=== PATIENT | male | born 2005 | race African-American/Black ===

== ENCOUNTER → 2023-09-04 | Outpatient (CLI) | payer OTHER | LOC: COL.RAD 08:20 | DX: M25.311 Other instability, right shoulder (principal); S43.491A Other sprain of right shoulder joint, initial encounter; X58.XXXA Exposure to other specified factors, initial encounter | CPT/HCPCS: A9575; Q9967 ==

== ENCOUNTER 2024-05-27 14:32 | Observation (INO) | payer OTHER ==
[~2024-05-27] VITALS: Ht 188 cm; Wt 88.5 kg
[2024-05-27] MEDS ORDERED: Iohexol 300 - 100 ML VIAL IV ONE (15:15)
[2024-05-27] MEDS ORDERED: NS 100 ML IV SCH (15:18)
[2024-05-27 16:45] VITALS: BP 156/73; PULSE 80; TEMP 98.9
[2024-05-27 17:00] VITALS: BP_SYST 156
[2024-05-27] MEDS ORDERED: Acetaminophen 325 MG TAB PO PRN (17:15)
[2024-05-27] MEDS ORDERED: LR 1,000 ML IV SCH (17:15)
[2024-05-27] MEDS ORDERED: Ondansetron 4 MG/2 ML VIAL IV PRN (17:15)
--- NOTE | 2024-05-27 17:45 | NUR ---
SHIFT ASSESSMENT COMPLETED AT THIS TIME. PT A&OX4. PT REPORTS 3/10 PAIN LOCATED IN THE ABDOMEN CRAMPS BUT DENIES PAIN MEDICAION AT THIS TIME. PT DENIES NAUSEA AND SOB AT THIS TIME. PT REPORTS 2 EPISODES OF VOMITING EARLIER THIS MORNING. CALL LIGHT WITHIN REACH. NO FURTHER NEEDS AT THIS TIME.
[2024-05-27 21:04] VITALS: BP 133/79; PULSE 68; TEMP 98.1
[2024-05-27 21:09] VITALS: BP_SYST 133
--- NOTE | 2024-05-27 21:30 | NUR ---
PT RESTING IN BED, ALERT AND ORIENTEDX4. ASSESSED PT. TOLERATED FULL LIQUID DIET. NO ABDOMINAL PAIN AT ALL. GOT ORDERS FROM DR FIELD TO ADVANCE TO REGULAR DIET. INFORMED PT. NO OTHER COMPLAINTS AT THIS TIME. CALL LIGHT WITHIN REACH.
--- NOTE | 2024-05-28 00:10 | NUR ---
PATIENT ASLEEP, RESTING IN BED. PATIENTS RESPIRATIONS WNL, HE APPEARS TO BE IN NO ACUTE DISTRESS. PATEINTS IVF INFUSING ORDERED. PATIENTS SIGNIFICANT OTHER ASLEEP ON BENCH IN ROOM. CALL [facility] REACH.
[2024-05-28 00:42] VITALS: BP 107/67; PULSE 90; TEMP 98.7
[2024-05-28 01:00] VITALS: BP_SYST 107
--- NOTE | 2024-05-28 02:31 | NUR ---
PATIENT IV INT PER PROTOCOL PER PATIENT HE HAS HAD NO ABD PAIN AFTER DIET WAS ADVANCED FROM CLEARS TO FULL LIQUID THEN TO GEN. PATIENT HAS NO COMPLAITNS AT THIS TIME. CALL LIGHT WTIHGUME REACH.
--- NOTE | 2024-05-28 02:45 | NUR ---
CALL RECIVED FORM ADMIN DESK. PATIENTS MOTHER ARRIVED AND WISHES TO STAY WITH PATIENT FOR THE REST OF THE NIGHT. THIS RN ASKED THE PATIENT AND HE WAS OK WITH THIS . PATIENTS MOTHER ALLOWED UPSTAIRS. PATIENT DENIES ANY NEEDS OR COMPLAITNS AT THIS TIME. CALL LIGHT WTIHIN REACH.
[2024-05-28 05:13] VITALS: BP 139/79; PULSE 77; TEMP 98.2
[2024-05-28 05:59] VITALS: BP_SYST 139
--- NOTE | 2024-05-28 06:50 | NUR ---
appears to be sleeping, in bed with lights off, eyes closed, resp quiet and easy, mom at bedside
[2024-05-28 06:54] LABS: HEMATOCRIT 41.8 % (36.0-47.0); HEMOGLOBIN 13.9 g/dl (12.5-16.1); MEAN CELL VOLUME 86 fl (80.0-95.0); MEAN CORPUSCULAR HEMOGLOBIN 29 pg (26-32); MEAN CORPUSCULAR HGB CONC 33 g/dl (33.0-37.0); MEAN PLATELET VOLUME 9.8 fl (7.4-10.4); PLATELET COUNT 272 K/mm3 (130-400); RED BLOOD COUNT 4.85 M/mm3 (4.20-5.60); REDCELL DISTRIBUTION WIDTH-CV 12.5 % (11.5-14.5)
[2024-05-28 07:17] VITALS: BP 137/72; PULSE 69; TEMP 98.2
[2024-05-28 07:36] LABS: BAND 5 % (0-10); LYMPHOCYTE 17 % (20.0-51.0); NEUTROPHILS 69 % (42.0-75.2)
[2024-05-28 07:37] LABS: PLATELET ESTIMATE NORMAL (NORMAL)
--- NOTE | 2024-05-28 08:10 | NUR ---
appears to continue to sleep
[2024-05-28 08:20] VITALS: BP_SYST 137
--- NOTE | 2024-05-28 08:50 | NUR ---
continues to appear to sleep, awakened and full assessment completed, see interventions for further info,
--- NOTE | 2024-05-28 09:00 | NUR ---
is up and ready to take a shower, INT wrapped and patient independent to shower
--- NOTE | 2024-05-28 09:20 | NUR ---
up and out of shower and brushing his teeth, DR Cross was in to see patient, will plan discharge soon
--- NOTE | 2024-05-28 09:55 | NUR ---
discharge instructions given to patient and his mother, verbalizes understanding, discharged ambulatory
--- NOTE | 2024-05-28 10:00 | NUR ---
Initial visit; Patient a young man from [place] here to attend [facility]. His mom was also present. Oliver states he is now doing better and is ready to be discharged. Aircraft Maintenance Supervisor wished him well and God's blessings.
== END 2024-05-28 09:55 | disposition home or self-care (01) ==
LOC: MEDICAL 14:32 → COL.RAD 14:32 → MEDICAL 16:30 → COL.RAD 16:37 → MEDICAL 16:37 → COL.RAD 05-28 08:01 → MEDICAL 05-28 08:01
PROVIDERS: ADMIT Surgery
DX: R10.9 Unspecified abdominal pain (principal); R11.2 Nausea with vomiting, unspecified
CPT/HCPCS: G0378; G0379; J7120; Q9967